=== PATIENT | female | born 1995 | race Hispanic/Latino ===

== ENCOUNTER 2017-07-25 11:22 | Outpatient (CLI) | payer OTHER | END 2017-07-25 13:25 | disposition home or self-care (01) | LOC: LAB 11:22 → TRG 11:22 | PROVIDERS: ATTEND Obstetrics & Gynecology | DX: O36.0130 Maternal care for anti-D [Rh] antibodies, third trimester, not applicable or unspecified (principal); Z3A.30 30 weeks gestation of pregnancy | CPT/HCPCS: 86850; 86900; 86901; 96372; J2790 ==

== ENCOUNTER 2017-09-11 15:03 | Outpatient (CLI) | payer OTHER ==
[2017-09-11 15:20] VITALS: BP 119/68
[2017-09-11] MEDS ORDERED: D5LR 1,000 ML IV SCH (16:00)
== END 2017-09-11 18:00 | disposition home or self-care (01) ==
LOC: TRG 15:03
PROVIDERS: ATTEND Obstetrics & Gynecology
DX: O47.1 False labor at or after 37 completed weeks of gestation (principal); Z3A.37 37 weeks gestation of pregnancy
CPT/HCPCS: 59025; 96360; J7121

== ENCOUNTER 2017-09-14 19:21 | Inpatient (IN) | payer OTHER ==
[2017-09-14] MEDS ORDERED: SUBLIMAZE IV PRN (21:13)
[2017-09-14 21:50] LABS: Hematocrit 33.6 % (30.3-42.9); Hemoglobin 11.1 gm/dl (10.1-14.3); Mean Corpuscular HGB Conc 33 % (30-34); Mean Corpuscular Volume 78 fl (79-97); Platelet Count 229 K/mm3 (140-440); Red Blood Count 4.31 M/mm3 (3.65-5.03); Red Cell Distribution Width 15.1 % (13.2-15.2)
[2017-09-14] MEDS: LACTATED RINGERS 1,000 ML IV SCH (21:50)
[2017-09-14 21:53] LABS: Mean Corpuscular Hemoglobin 26 pg (28-32)
[2017-09-14] MEDS ORDERED: PITOCin/NS 30 UNIT/500ML 30 UNITS/500 ML BAG IV SCH (22:00)
[2017-09-14] MEDS ORDERED: ePHEDrine SULFATE ONE (23:33)
[2017-09-14] MEDS ORDERED: ePHEDrine SULFATE IV PRN (23:45)
[2017-09-14] MEDS ORDERED: NARCAN 2 MG/2 ML IV PRN (23:45)
--- NOTE | 2017-09-14 23:45 | Anesthesia Consultation ---
Anesthesia Consult and Med Hx Date of service: 09/14/17 - Airway Anesthetic Teeth Evaluation: Good ROM Head & Neck: Adequate Mental/Hyoid Distance: Adequate Mallampati Class: Class II Intubation Access Assessment: Good - Pulmonary Exam CTA: Yes - Cardiac Exam Cardiac Exam: RRR - Pre-Operative Health Status ASA Pre-Surgery Classification: ASA2 Proposed Anesthetic Plan: Epidural, Spinal - Pulmonary Hx Asthma: No COPD: No Hx Pneumonia: No - Cardiovascular System Hx Hypertension: No Hx Coronary Artery Disease: No - Central Nervous System Hx Seizures: No Hx Psychiatric Problems: No - Endocrine Hx Renal Disease: No Hx End Stage Renal Disease: No Hx Liver Disease: No Hx Hypothyroidism: No Hx Hyperthyroidism: No - Hematic Hx Anemia: No Hx Sickle Cell Disease: No - Other Systems Hx Alcohol Use: No
[2017-09-15] MEDS ORDERED: fentaNYL-BUPIV 2 MCG/ML-0.125% 200 MCG/100 ML BAG EPIDURAL SCH (01:00)
[2017-09-15] MEDS ORDERED: ZOFRAN IV PRN ×2 (04:39→11:58)
--- NOTE | 2017-09-15 05:41 | History and Physical Report ---
History of Present Illness Date of examination: 09/15/17 Date of admission: 09/14/17 19:21 Chief complaint: I'm dilated History of present illness: Patient is a 21 year old who presented to the office today at 37.5 weeks with advanced dilation to 5 cm. She had been complaining of contractions for the past 2 days and was only 1cm on her previous exam. Her course has been uncomplicated. Past History Past Medical History: no pertinent history Past Surgical History: no surgical history Social history: - Obstetrical History Expected Date of Delivery: 10/01/17 Actual Gestation: 37 Week(s) 5 Day(s) : 1 Medications and Allergies Allergies Allergy/AdvReac Type Severity Reaction Status Date / Time adhesive AdvReac Rash Verified 09/14/17 20:23 chocolate Allergy Vomiting Uncoded 09/11/17 15:05 Home Medications Medication Instructions Recorded Confirmed Last Taken Type Pnv No.95/Ferrous Fum/Folic AC 1 each PO DAILY 09/11/17 09/14/17 09/13/17 History [ Formula Tablet] Active Meds: Active Medications Ephedrine Sulfate (Ephedrine Sulfate) 10 mg IV Q2M PRN PRN Reason: Hypotension Fentanyl (Sublimaze) 100 mcg IV Q2H PRN PRN Reason: Labor Pain Lactated Ringer's (Lactated Ringers) 1,000 mls @ 125 mls/hr IV DIRECT KOBY Last Admin: 09/14/17 21:50 Dose: 125 mls/hr Oxytocin/Sodium Chloride (Pitocin/Ns 20 Unit/1000ml Drip) 20 units in 1,000 mls @ 125 mls/hr IV DIRECT KOBY Oxytocin/Sodium Chloride (Pitocin/Ns 30 Unit/500ml) 30 units in 500 mls @ 2 mls /hr IV TITR KOBY PRN Reason: Protocol Last Titration: 09/15/17 02:20 Dose: 1 mls/hr, 1 mls/hr Fentanyl/Bupivacaine/Sodium Chlor (Fentanyl-Bupiv 2 Mcg/Ml-0.125%) 200 mcg in 100 mls @ 12 mls/hr EPIDURAL TITR KOBY PRN Reason: Protocol Last Admin: 09/15/17 00:22 Dose: 12 mls/hr Naloxone HCl (Narcan 2 Mg/2 Ml) 0.2 mg IV Q5M PRN PRN Reason: Respiratory sedation Ondansetron HCl (Zofran) 4 mg IV Q6H PRN PRN Reason: Nausea And Vomiting Last Admin: 09/15/17 05:04 Dose: 4 mg Review of Systems All systems: negative Constitutional: fatigue Genitourinary: pelvic pain, contractions - Vital Signs Vital signs: Vital Signs Temp Resp 98.1 F 20 09/14/17 19:51 09/14/17 19:51 Temp Pulse Resp BP Pulse Ox 97.9 F 74 12 112/60 96 09/15/17 03:07 09/15/17 03:07 09/15/17 03:07 09/15/17 03:07 09/15/17 03:07 - Physical Exam Breasts: Positive: deferred Cardiovascular: Regular rate, Normal S1, Normal S2 Lungs: Positive: Clear to auscultation, Normal air movement Abdomen: Positive: normal appearance, soft, normal bowel sounds Genitourinary (Female): Positive: normal external genitalia Vulva: right: normal Extremities: Positive: normal - Obstetrical FHR: auscultation normal Cervical Dilatation: 5 Cervical Effacement Percentage: 90 station: 0 Uterine Contraction Pattern: Irregular Uterine Contraction Intensity: Mild Results Result Diagrams: 09/14/17 20:35 Abnormal lab results 09/14/17 Range/Units 20:35 MCV 78 L (79-97) fl MCH 26 L (28-32) pg All other labs normal. Assessment and Plan IUP at 37.5 weeks with advanced dilation. Admit to L&D. AROM. Augment with pitocin. Anticipate .
[2017-09-15] MEDS ORDERED: D5NS 500 ML IV SCH (07:00)
[2017-09-15] MEDS: LACTATED RINGERS 1,000 ML IV SCH (07:30)
[2017-09-15] MEDS ORDERED: MARCAINE-EPI/PF 0.5%-1:200,000 INFILTRATI ONE (07:46)
[2017-09-15] MEDS ORDERED: MINERAL OIL ONE (08:07)
[2017-09-15] MEDS: PITOCin/NS 20 UNIT/1000ML DRIP 20 UNITS/1,000 ML BAG IV SCH ×2 (09:25→11:06)
--- NOTE | 2017-09-15 09:38 | Progress Note ---
Subjective Date of service: 09/15/17 Principal diagnosis: term labor Interval history: Called by L&D RN to evaluate patient at 0736am. Epidural pump had finished prior to having a new bag ready from the pharmacy. Pt currently pushing with increased pain, requesting re-dose of epidural. VSS as charted in RN records. 6cc of 0.125% bupivicaine administered after negative aspiration through epidural catheter. Pt with increased analgesia and able to finish laboring. Objective - Constitutional Vitals: Vital Signs - 12hr 09/14/17 09/14/17 09/14/17 21:38 21:39 21:44 Temperature Pulse Rate 86 91 H 86 Respiratory Rate Blood Pressure Blood Pressure [Right] O2 Sat by Pulse 94 94 94 Oximetry 09/14/17 09/14/17 09/14/17 21:49 21:54 21:55 Temperature Pulse Rate 80 107 H 97 H Respiratory Rate Blood Pressure Blood Pressure [Right] O2 Sat by Pulse 94 94 94 Oximetry 09/14/17 09/14/17 09/14/17 21:59 22:04 22:09 Temperature Pulse Rate 84 95 H 86 Respiratory Rate Blood Pressure Blood Pressure [Right] O2 Sat by Pulse 93 95 92 Oximetry 09/14/17 09/14/17 09/14/17 22:14 22:19 22:24 Temperature Pulse Rate 86 85 79 Respiratory Rate Blood Pressure Blood Pressure [Right] O2 Sat by Pulse 95 93 96 Oximetry 09/14/17 09/14/17 09/14/17 22:29 22:34 22:39 Temperature Pulse Rate 81 81 79 Respiratory Rate Blood Pressure Blood Pressure [Right] O2 Sat by Pulse 95 95 96 Oximetry 09/14/17 09/14/17 09/14/17 22:44 22:49 22:54 Temperature Pulse Rate 76 80 79 Respiratory Rate Blood Pressure Blood Pressure [Right] O2 Sat by Pulse 96 96 96 Oximetry 09/14/17 09/14/17 09/14/17 22:59 23:04 23:09 Temperature Pulse Rate 91 H 85 69 Respiratory Rate Blood Pressure Blood Pressure [Right] O2 Sat by Pulse 95 95 95 Oximetry 09/14/17 09/14/17 09/14/17 23:14 23:21 23:26 Temperature Pulse Rate 74 93 H 83 Respiratory Rate Blood Pressure Blood Pressure [Right] O2 Sat by Pulse 95 96 96 Oximetry 09/14/17 09/14/17 09/14/17 23:31 23:36 23:41 Temperature Pulse Rate 78 74 74 Respiratory Rate Blood Pressure Blood Pressure [Right] O2 Sat by Pulse 96 96 96 Oximetry 09/14/17 09/14/17 09/14/17 23:46 23:51 23:52 Temperature Pulse Rate 83 93 H 78 Respiratory Rate Blood Pressure 126/82 117/58 Blood Pressure [Right] O2 Sat by Pulse 96 96 Oximetry 09/14/17 09/14/17 09/14/17 23:54 23:56 23:57 Temperature Pulse Rate 86 102 H 95 H Respiratory Rate Blood Pressure 120/62 123/73 Blood Pressure [Right] O2 Sat by Pulse 97 84 Oximetry 09/14/17 09/15/17 09/15/17 23:58 00:00 00:01 Temperature Pulse Rate 89 77 79 Respiratory Rate Blood Pressure 128/65 116/59 Blood Pressure [Right] O2 Sat by Pulse 97 Oximetry 09/15/17 09/15/17 09/15/17 00:03 00:04 00:06 Temperature Pulse Rate 79 71 87 Respiratory Rate Blood Pressure 145/67 133/61 133/63 Blood Pressure [Right] O2 Sat by Pulse 96 Oximetry 09/15/17 09/15/17 09/15/17 00:11 00:16 00:21 Temperature Pulse Rate 84 70 71 Respiratory Rate Blood Pressure 127/59 Blood Pressure [Right] O2 Sat by Pulse 96 96 97 Oximetry 09/15/17 09/15/17 03:07 07:33 Temperature 36.6 C 36.5 C Pulse Rate 74 Respiratory 12 18 Rate Blood Pressure Blood Pressure 112/60 [Right] O2 Sat by Pulse 96 Oximetry - Labs CBC & Chem 7: 09/14/17 20:35 Labs: Abnormal lab results 09/14/17 Range/Units 20:35 MCV 78 L (79-97) fl MCH 26 L (28-32) pg
--- NOTE | 2017-09-15 09:56 | Procedure Note ---
OB Delivery Note - Delivery Date of Delivery: 09/15/17 Surgeon: MARAL CEDEÑO Estimated blood loss: 300cc - Vaginal Delivery presentation: vertex Delivery position: OA Intrapartum events: meconium Delivery induction: none Delivery augmentation: pitocin Delivery monitor: external FHT, external uterine Route of delivery: Delivery placenta: spontaneous Delivery cord: 3 umbilical vessels Episiotomy: none Delivery laceration: 2nd degree Delivery repair: chromic Anesthesia: epidural Delivery comments: Viable male delivered over intact perineum with 3vc and no nuchal. Mouth and nose suctioned and infant placed on maternal abdomen. Cord clamped and cut when finished pulsing. Placenta delivered spontaneously and intact with 3vc. Patient tolerated procedure well. Excellent hemostasis - Infant A at 1 minute: 8 at 5 minutes: 9 Infant Gender: Male (8 pounds 3 ounces)
[2017-09-15] MEDS ORDERED: BENADRYL PO PRN (11:58)
[2017-09-15] MEDS ORDERED: SODIUM CHLORIDE FLUSH SYRINGE 10 ML IV NR (11:58)
[2017-09-15] MEDS ORDERED: LANSINOH TP PRN (11:58)
[2017-09-15] MEDS ORDERED: MILK OF MAGNESIA PO PRN (11:58)
[2017-09-15] MEDS ORDERED: DULCOLAX PR PRN (11:58)
[2017-09-15] MEDS ORDERED: PHENERGAN PO PRN (11:58)
[2017-09-15] MEDS ORDERED: TUCKS PAD TP PRN (11:58)
[2017-09-15] MEDS ORDERED: NORCO 5/325 PO PRN (11:58)
[2017-09-15] MEDS ORDERED: COLACE PO SCH (11:58)
[2017-09-15] MEDS ORDERED: TYLENOL PO PRN (11:58)
[2017-09-15] MEDS ORDERED: PRENATAL VITAMIN PO SCH (11:58)
[2017-09-15] MEDS: MOTRIN PO SCH (12:23)
[2017-09-15 22:13] LABS: Hematocrit 30.2 % (30.3-42.9)
[2017-09-16] MEDS: MOTRIN PO SCH ×2 (08:08→16:06)
--- NOTE | 2017-09-16 16:45 | Progress Note ---
Assessment and Plan O: VSS AF PP H/H; 10.0/30.2 A: Stable PP Day 1 Anemia P: Iron BID d/c home Subjective - Subjective Date of service: 09/16/17 Principal diagnosis: term labor Patient reports: appetite normal, voiding normally, pain well controlled, flatus , ambulating normally [place]: doing well Objective - Vital Signs Latest vital signs: Vital Signs Temp Pulse Resp BP 09/16/17 08:20 98.5 F 87 18 119/64 09/16/17 00:00 98.1 F 87 18 120/60 09/15/17 16:59 98.8 F 70 18 119/70 Intake and Output 09/16/17 09/16/17 09/16/17 06:59 14:59 22:59 Intake Total 240 360 Balance 240 360 Intake: Oral 240 360 Other: Total, Intake Amount 240 120 # Voids Void 1 1 - Exam Breasts: Present: deferred Lungs: Present: Normal air movement Abdomen: Present: normal appearance, soft. Absent: distention, tenderness Vulva: both: normal Uterus: Present: normal, firm, fundal height below umbilicus (2 below, U ML). Absent: bogginess, tenderness Extremities: Present: normal - Labs Labs: Abnormal lab results 09/15/17 Range/Units 21:47 Hgb 10.0 L (10.1-14.3) gm/dl Hct 30.2 L (30.3-42.9) %
--- NOTE | 2017-09-16 16:51 | Discharge Summary ---
Providers - Providers Date of Admission: 09/14/17 19:21 Date of discharge: 09/16/17 Attending physician: MARAL CEDEÑO Primary care physician: MARAL CEDEÑO Hospitalization Reason for admission: active labor, IUP at term Delivery: Episiotomy: none Laceration: 2nd degree Other procedures: none complications: none Discharge diagnosis: IUP at term delivered [place] baby: male Condition at discharge: Good Disposition: DC-01 TO HOME OR SELFCARE Plan - Discharge Medications Prescriptions: Acetaminophen/Codeine [Tylenol /Codeine # 3 tab] 1 tab PO Q6H PRN #30 tab PRN Reason: Pain Docusate Sodium [Colace] 100 mg PO BID PRN #60 capsule PRN Reason: Constipation Ferrous Sulfate [Feosol 325 MG tab] 325 mg PO BID PRN #60 tablet PRN Reason: anemia Ibuprofen [Motrin 600 MG tab] 600 mg PO Q6H #40 tablet - Provider Discharge Summary Activity: routine, no sex for 6 weeks, no heavy lifting 4 weeks, no strenuous exercise Diet: routine Instructions: routine Additional instructions: [] Smoking cessation referral if applicable(refer to patient education folder for contact #) [] Refer to [facility] Booklet Call your doctor immediately for: * Fever > 100.5 * Heavy vaginal bleeding ( >1 pad per hour) * Severe persistent headache * Shortness of breath * Reddened, hot, painful area to leg or breast * Drainage or odor from incision. * Keep incision clean and dry at all times and follow doctor's instructions regarding bathing/showering - Follow up plan Follow up: MARAL CEDEÑO MD [Primary Care Provider] - (RTO 4 weeks . Call office for infant circumcision. ) Forms: [facility] Discharge Summary
[2017-09-16 17:41] VITALS: BP 132/80
== END 2017-09-16 19:30 | disposition home or self-care (01) | DRG 775 ==
LOC: LD 19:21 → OB 09-15 11:18
PROVIDERS: ADMIT Obstetrics & Gynecology; ATTEND Obstetrics & Gynecology
PROC: 10E0XZZ Delivery of Products of Conception, External Approach (ICD-10-PCS; principal; 2017-09-15)
PROC: 0KQM0ZZ Repair Perineum Muscle, Open Approach (ICD-10-PCS; 2017-09-15)
PROC: 3E0R3BZ Introduction of Anesthetic Agent into Spinal Canal, Percutaneous Approach (ICD-10-PCS; 2017-09-15)
PROC: 00HU33Z Insertion of Infusion Device into Spinal Canal, Percutaneous Approach (ICD-10-PCS; 2017-09-15)
DX: O77.0 Labor and delivery complicated by meconium in amniotic fluid (principal); O70.1 Second degree perineal laceration during delivery; Z3A.37 37 weeks gestation of pregnancy; Z37.0 Single live birth; O90.81 Anemia of the puerperium; D64.9 Anemia, unspecified
CPT/HCPCS: 36415; 85014; 85018; 85027; 86592; 86850; 86900; 86901; 99211; A6250; G0463; J2405; J2590; J7042; J7120